=== PATIENT | male | born 1950 | race Caucasian/White ===

== ENCOUNTER 2022-11-24 09:00 | Outpatient (NON) | payer MEDICARE, SELFPAY | END 2022-11-24 09:01 | disposition home or self-care (01) | LOC: ANHLAB 11-25 10:33 | PROVIDERS: PCP Internal Medicine; Visit Provider Internal Medicine Gastroenterology | DX: Z12.11 Encounter for screening for malignant neoplasm of colon (principal) | CPT/HCPCS: 88305 ==

== ENCOUNTER 2022-11-24 09:30 | Day surgery (SDC) | payer MEDICARE, SELFPAY ==
[2022-11-11 10:53] VITALS: BMI 29.2
--- NOTE | 2022-11-21 13:43 | PM.HPGS ---
History of Present Illness History of Present Illness Consent: Risks, benefits, and alternatives have been discussed and questions answered. Patient agrees to proceed with procedure. Chief complaint: Neoplasm Screening Narrative: Eric Quinones is a 72 year old male Referred for colon cancer screening Review of Systems Review of Systems: All systems reviewed & are unremarkable except as noted in HPI and below PMFSH Family History Family History Mother Patient's mother is Social History Social History Smoking status: Never smoker Second hand tobacco smoke exposure: No Alcohol intake: current Alcohol use details: 1-2 a month Substance use: never Substance use type: does not use Living arrangements: with family Spiritual care concerns: No Meds Home Medications and Allergies Home Medications Medication Instructions Recorded Confirmed Type aspirin 81 mg tablet,delayed 81 mg PO DAILY 12/13/19 11/11/22 History release (Adult Low Dose Aspirin) cholecalciferol (vitamin D3) 125 5,000 unit PO DAILY 12/13/19 11/11/22 History mcg (5,000 unit) capsule omega-3 fatty acids 1,000 mg 1,000 mg PO DAILY 12/13/19 11/11/22 History capsule (Fish Oil Concentrate) amlodipine 5 mg tablet 5 mg PO DAILY 12/14/19 11/11/22 History atorvastatin 40 mg tablet 40 mg PO DAILY 12/14/19 11/11/22 History famotidine 20 mg tablet 20 mg PO PRN PRN Acid Reflux 12/14/19 11/11/22 History multivitamin (Multiple Vitamins 1 tablet PO DAILY 12/14/19 11/11/22 History tablet) carvedilol 6.25 mg tablet 12.5 mg PO Q12H 06/15/20 11/11/22 History Allergies Allergy/AdvReac Type Severity Reaction Status Date / Time losartan Allergy Severe elevated BP Verified 11/24/22 10:59 poison mitch extract Allergy Rash Verified 11/24/22 10:59 Exam Resp: Auscultation: clear to auscultation bilaterally Cardio: Rate: regular rate Rhythm: regular rhythm GI: GI Palp: Yes Soft to palpation and No Tenderness to palpation present (GI) Assessment and Plan Assessment and plan (1) Colon cancer screening: Code(s): Z12.11 - Encounter for screening for malignant neoplasm of colon Status: Acute Assessment and Plan: Colonoscopy with possible biopsy or polypectomy or cautery or injection of substances.
--- NOTE | 2022-11-24 10:57 | WPDANESEPPF ---
Anes - Initial Pre Proc Eval Procedure: Operation Date: 11/24/22 11:30 Proposed Procedures p Screening Colonoscopy - Leobardo Brizuela MD Date/Time: 11/24/22 10:57 Surgeon: Leobardo Brizuela MD Pre Op Diagnosis: Neoplasm Screening Patient Data Age: 72 Gender: M Height: 1.75 m Weight: 90 kg Allergies Allergy/AdvReac Type Severity Reaction Status Date / Time losartan Allergy Severe elevated BP Verified 11/11/22 10:36 poison mitch extract Allergy Rash Verified 11/11/22 10:51 Home Medications Medication Instructions Recorded Confirmed Type aspirin 81 mg tablet,delayed 81 mg PO DAILY 12/13/19 11/11/22 History release (Adult Low Dose Aspirin) cholecalciferol (vitamin D3) 125 5,000 unit PO DAILY 12/13/19 11/11/22 History mcg (5,000 unit) capsule omega-3 fatty acids 1,000 mg 1,000 mg PO DAILY 12/13/19 11/11/22 History capsule (Fish Oil Concentrate) amlodipine 5 mg tablet 5 mg PO DAILY 12/14/19 11/11/22 History atorvastatin 40 mg tablet 40 mg PO DAILY 12/14/19 11/11/22 History famotidine 20 mg tablet 20 mg PO PRN PRN Acid Reflux 12/14/19 11/11/22 History multivitamin (Multiple Vitamins 1 tablet PO DAILY 12/14/19 11/11/22 History tablet) carvedilol 6.25 mg tablet 12.5 mg PO Q12H 06/15/20 11/11/22 History Patient hx anesthesia problems: none Family hx anesthesia problems: none Results Review: All pre-operative results and documents have been reviewed as part of the pre-operative evaluation. [facility] Family History Family History Mother Patient's mother is Social History Social History Smoking status: Never smoker Second hand tobacco smoke exposure: No Alcohol intake: current Alcohol use details: 1-2 a month Substance use: never Substance use type: does not use Living arrangements: with family Spiritual care concerns: No Anes - Eval Final PreProcedure Day of Procedure 11/24/22 10:57 Patient weight: overweight Heart: regular rate and rhythm Lungs: clear to auscultation Airway: Mallampati scale class II Neurological: alert and oriented Last oral intake: >/= 8 hours ASA classification: III Emergent: no Anesthetic plan: proceed Anesthesia type and monitoring: general GIVS and standard monitoring Results Review: All pre-operative results and documents have been reviewed as part of the pre-operative evaluation. Informed Consent: The patient's anesthetic plan and its attendant risks and benefits were discussed with the patient/family/POA. Questions were solicited and answers provided to the satisfaction of the patient/family/POA.
[2022-11-24 11:00] VITALS: BP 141/93; PULSE 60; RESP 20; TEMP 36.3; O2SAT 98
[2022-11-24] MEDS: LACTATED RINGERS 1,000 ML 150 ML IV CONT (11:03)
[2022-11-24 11:42] VITALS: BP 100/66; PULSE 59; RESP 15; O2SAT 96
[2022-11-24 11:52] VITALS: BP 103/67; PULSE 59; RESP 15; O2SAT 97
--- NOTE | 2022-11-24 12:27 | WPDANESPN ---
Anes - Prog Note Post-Op Date/Time: 11/24/22 12:27 Cardiovascular status: normal Respiratory status: normal Airway patency: baseline Mental status: baseline Post-Op hydration status: normal Vital Signs: Last Vital Signs Temp 36.3 C L 11/24/22 11:00 Pulse 59 L 11/24/22 11:52 Resp 15 11/24/22 11:52 BP 103/67 11/24/22 11:52 Pulse Ox 97 11/24/22 11:52 O2 Del Method Room Air 11/24/22 11:42 Pain Score (VAS): 0 I/O: Intake & Output 11/23/22 11/24/22 11/24/22 23:59 07:59 15:59 Intake Total 500 Balance 500 Patient Feedback: Patient satisfied with anesthetic care.
== END 2022-11-24 12:30 | disposition home or self-care (01) ==
PROVIDERS: PCP Internal Medicine; Visit Provider Internal Medicine Gastroenterology
PROC: 0DJD8ZZ Inspection of Lower Intestinal Tract, Via Natural or Artificial Opening Endoscopic (ICD-10-PCS; CPT 45378; principal; 2022-11-24 11:30)
DX: Z12.11 Encounter for screening for malignant neoplasm of colon (principal)
CPT/HCPCS: 45385